=== PATIENT | female | born 2000 | race Two or more races ===

== ENCOUNTER 2025-05-21 07:20 | Day surgery (SDC) | payer MEDICAID, SELFPAY ==
[2025-05-20 14:17] VITALS: BMI 21.4
[2025-05-21] VITALS (14 sets, daily range): BP systolic 107–127; BP diastolic 74–89; PULSE 92–127; RESP 9–18; TEMP 36.8; O2SAT 96–100; BMI 21.7
[2025-05-21] MEDS: RINGERS LACTATED 1000 ML 1,000 ML 60 ML IV (08:52)
== END 2025-05-21 10:38 | disposition home or self-care (01) ==
PROVIDERS: Referring Provider Specialist; Visit Provider Specialist
PROC: 0DJD8ZZ Inspection of Lower Intestinal Tract, Via Natural or Artificial Opening Endoscopic (ICD-10-PCS; CPT 45378; principal; 2025-05-21 08:30)
DX: K51.911 Ulcerative colitis, unspecified with rectal bleeding (principal); K62.89 Other specified diseases of anus and rectum
CPT/HCPCS: 45380; 80053; 81001; 81025; 85025; 85730; A4649; J1200; J1885; J2175; J2250; J3010; J7120; A9270